=== PATIENT | female | born 1990 | race Hispanic/Latino ===

== ENCOUNTER 2021-08-16 10:17 | Day surgery (SDC) | payer OTHER ==
[2021-08-14 12:49] LABS: Mean Corpuscular HGB CONC 33.5 g/dL (32.0-36.0); Mean Corpuscular Hemoglobin 29.4 pg (27.0-33.0); Mean Corpuscular Volume 87.8 fl (81.6-98.3); Mean Platelet Volume 11.1 fl (7.4-10.4); Platelet Count 273 10x3/uL (150-450); RBC Distribution Width 13.2 % (11.5-14.5); Red Blood Cell (RBC) Count 4.76 10x6/uL (3.90-5.03); White Blood Cell (WBC) Count 9.7 10x3/uL (3.5-10.5)
[2021-08-14 13:17] VITALS: BMI 28.7
[2021-08-14 13:28] LABS: Syphilis Antibody Nonreactive (Nonreactive); Syphilis Antibody Index 0.05 S/CO (<1.00 Non-Reactive)
[2021-08-14 13:30] LABS: HIV (1/2) Antibody/Antigen Non-Reactive (NonReactive); HIV 1/2 INDEX 0.24 S/CO (<1.00)
[~2021-08-16 10:17] MED LIST: Methylergonovine 0.2 MG/ML VIAL ONE
[2021-08-16] MEDS ORDERED: Lidocaine 1% MPF 2 ML VIAL ONE (10:46)
[2021-08-16] MEDS ORDERED: Dexamethasone 4 mg/ml Vial ONE (11:39)
[2021-08-16] MEDS ORDERED: Ondansetron PF 4 MG/2 ML Vial ONE (11:39)
[2021-08-16] MEDS ORDERED: Lidocaine 1% PF 5 ML VIAL ONE (11:39)
[2021-08-16] MEDS ORDERED: Ketorolac Tromethamine 30 MG/ML VIAL ONE (11:39)
[2021-08-16] MEDS ORDERED: PROPOFOL 20 ML ONE (11:39)
[2021-08-16] MEDS ORDERED: Midazolam HCl 2 mg/2 ml Vial ONE (11:57)
[2021-08-16] MEDS ORDERED: Fentanyl 100 MCG/2 ML VIAL ONE (11:57)
[2021-08-16] MEDS ORDERED: Ibuprofen 400 MG TAB PO PRN (12:11)
[2021-08-16] MEDS ORDERED: Lactated Ringer's 1,000 ML IV SCH (12:15)
[2021-08-16] MEDS ORDERED: cefTRIAXone\\ROCEPHIN 1 GM VIAL ONE (12:25)
[2021-08-16] MEDS ORDERED: Misoprostol 200 MCG TAB ONE (12:50)
== END 2021-08-16 15:10 | disposition home or self-care (01) ==
LOC: EDBD → CSHSDC 10:17
PROVIDERS: ATTEND Obstetrics & Gynecology
PROC: 10D17ZZ Extraction of Products of Conception, Retained, Via Natural or Artificial Opening (ICD-10-PCS; principal; 2021-08-16)
DX: O02.1 Missed abortion (principal); Z20.822 Contact with and (suspected) exposure to COVID-19
CPT/HCPCS: 85027; 86780; 86900; 86901; 87389; 88305; J0696; J1100; J1885; J2210; J2250; J2405; J2704; J3010; U0003; U0005